=== PATIENT | female | born 1960 | race Caucasian/White ===

== ENCOUNTER 2017-07-05 18:50 | Emergency (ER) | payer BC ==
[2017-07-05] MEDS ORDERED: HYDROMORPHONE HCL 2 MG/ML VIAL IM ONE (19:33)
[2017-07-05] MEDS ORDERED: KETOROLAC 30 MG/ML VIAL IM ONE (19:33)
--- NOTE | 2017-07-05 19:40 | Emergency Department Record ---
History of Present Illness - General Stated Complaint: MATHEWS Time Seen by Provider: 07/05/17 19:02 Source: Patient Mode of Arrival: Ambulatory Limitations: No limitations - History of Present Illness Initial Comments: 56 yo female presents to ED with a CC of "migraine headache", similar to previous. 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 Patient denies fevers, chills, or neck stiffness symptoms. Patient denies the use of anticoagulation medications. MD Complaint: Headache Onset/Timin -: Days(s) Onset Description: Gradual Severity scale (1-10): 8 Quality: Aching Consistency: Constant Improves With: Nothing Worsens With: None Treatments Prior to Arrival: Prescription analgesic - Related Data Allergies Allergy/AdvReac Type Severity Reaction Status Date / Time minocycline HCl Allergy Intermediate RASH Verified 07/05/17 19:46 [From Minocin] Skin Cleanser Combination Allergy Intermediate RASH Verified 07/05/17 19:46 No.4 [From Minocin] Review of Systems Constitutional: Denies: Chills, Fever, Malaise, Night sweats Eyes: Denies: Eye discharge, Eye pain ENT: Denies: Congestion, Ear pain, Epistaxis Respiratory: Denies: Cough, Dyspnea Cardiovascular: Denies: Chest pain, Dyspnea on exertion Endocrine: Denies: Fatigue, Heat or cold intolerance Gastrointestinal: Denies: Abdominal pain, Nausea, Vomiting Genitourinary: Denies: Incontinence, Retention Musculoskeletal: Denies: Arthralgia, Back pain, Gout, Joint swelling Skin: Denies: Bruising, Change in color Neurological: Reports: Headache. Denies: Abnormal gait, Confusion, Seizure Psychiatric: Denies: Anxiety Hematological/Lymphatic: Denies: Anemia, Blood Clots Past Medical History - SOCIAL HISTORY Smoking Status: Former smoker Drug Use: None - RESPIRATORY Hx Respiratory Disorders: No - CARDIOVASCULAR Hx Cardio Disorders: No - NEURO Hx Neuro Disorders: Yes Hx Headaches: Yes (migraines since age 14) - GI Hx GI Disorders: Yes Hx Reflux: Yes - Hx Genitourinary Disorders: No - ENDOCRINE Hx Endocrine Disorders: No - MUSCULOSKELETAL Hx Musculoskeletal Disorders: Yes Hx Osteoporosis: Yes (osteopenia/vit d deficiency dx 07/2014) - PSYCH Hx Psych Problems: Yes Hx Depression: Yes (from menopause) - HEMATOLOGY/ONCOLOGY Hx Hematology/Oncology Disorders: No Hx Blood Transfusions: Yes (1979 during child ) Hx Blood Transfusion Reaction: No Family Medical History Hx Diabetes: Grandparents Hx Heart Disease: Father, Mother Hx Stroke: Grandparents Physical Exam - General General Appearance: Alert, Oriented x3, Cooperative, Mild distress Limitations: No limitations - Head Head exam: Atraumatic, Normocephalic, Normal inspection Head exam detail: negative: Abrasion, Contusion, Hoover's sign, General tenderness, Hematoma, Laceration - Eye Eye exam: Normal appearance. negative: Conjunctival injection, Periorbital swelling, Periorbital tenderness, Scleral icterus - ENT Ear exam: negative: Auricular hematoma, Auricular trauma Nasal Exam: negative: Active bleeding, Discharge, Dried blood, Foreign body Mouth exam: negative: Drooling, Laceration, Muffled voice, Tongue elevation - Neck Neck exam: Normal inspection. negative: Meningismus, Tenderness - Respiratory Respiratory exam: Normal lung sounds bilaterally. negative: Rales, Respiratory distress, Rhonchi, Stridor - Cardiovascular Cardiovascular Exam: Regular rate, Normal rhythm, Normal heart sounds - GI/Abdominal GI/Abdominal exam: Soft. negative: Rebound, Rigid, Tenderness - Rectal Rectal exam: Deferred - exam: Deferred - Extremities Extremities exam: Normal inspection. negative: Calf tenderness, Pedal edema, Tenderness - Back Back exam: Denies: CVA tenderness (R), CVA tenderness (L) - Neurological Neurological exam: Alert, Normal gait, Oriented X3 - Psychiatric Psychiatric exam: Normal affect, Normal mood - Skin Skin exam: Normal color. negative: Abrasion Type of lesion: negative: abrasion Course Vital Signs 07/05/17 19:32 Temperature 98.9 F Pulse Rate [ 77 Pulse Ox Probe] Respiratory 18 Rate Blood Pressure 133/82 [Left Arm] Pulse Ox 99 - Reevaluation(s) Reevaluation #1: 07/05/17 20:40 Patient reassessed, reports mild improviment in her headache symptoms and is requesting more Dilaudid. I verbalized that I did not feel safe administering more dilaudid as 2 mg IM is a sufficient dose for an individual weighing 130 lbs , and the risk of respiratory suppression is higher with subsequent doses of opiates. Patient appears to be resting comfortably on re-examination at this time as well. I offered the patient valium as an alternative, will administer 5 mg IM and reassess. Reevaluation #2: 07/05/17 21:18 Patient is sitting up, reports that she is resting more comfortably. Patient then asked for "a couple of percocet as I am out". Will discharge home with Pancho julian 2 with instructions to follow-up with her pain specialist Friday without fail. Disposition Disposition: Discharge Clinical Impression: Acute headache Qualifiers: Headache type: unspecified Intractability: not intractable Qualified Code(s): R51 - Headache Disposition: Home, Self-Care Condition: (2) Stable Instructions: Migraine Headache (ED) Additional Instructions: Return to ED if your symptoms worsen or if you have any concerns. Follow-up with Dr. Byers in 1-3 days as directed. Time of Disposition: 19:42 Quality - Quality Measures Quality Measures: N/A - Blood Pressure Screening Does Patient Have Any of the Following: No Blood Pressure Classification: Pre-Hypertensive BP Reading Systolic Measurement: 140 Diastolic Measurement: 87 Screening for High Blood Pressure: < First Hypertensive BP, F/U Documented > [ G8950] First Hypertensive Follow-up Interventions: Referral to alternative/primary care provider.
[2017-07-05] MEDS ORDERED: DIAZEPAM 5 MG/1 ML TUBX IM ONE (20:39)
[2017-07-05] MEDS ORDERED: HYDROCODONE/APAP 5/325MG TABLET PO ONE (21:17)
== END 2017-07-05 21:31 | disposition home or self-care (01) ==
LOC: ER 18:50
DX: R51 Headache (principal)
CPT/HCPCS: 99283 ×2; 96372; J1885; J1170; J3360

== ENCOUNTER 2017-08-27 15:52 | Emergency (ER) | payer BC ==
[2017-08-27] MEDS ORDERED: 0.9 % SODIUM CHLORIDE 1,000 ML BAG IV ONE (16:13)
[2017-08-27] MEDS ORDERED: METOCLOPRAMIDE HCL 10 MG/2 ML VIAL IVP ONE (16:13)
[2017-08-27] MEDS ORDERED: KETOROLAC 30 MG/ML VIAL IVP ONE (16:13)
[2017-08-27] MEDS ORDERED: DIPHENHYDRAMINE HCL IV 50 MG/ML VIAL IVP ONE (16:13)
--- NOTE | 2017-08-27 16:15 | Emergency Department Record ---
History of Present Illness - General Chief Complaint: Headache Migraine Stated Complaint: MIGRAINE Time Seen by Provider: 08/27/17 16:08 Source: Patient Mode of Arrival: Ambulatory Limitations: No limitations - History of Present Illness Initial Comments: The patient is here due to having a migraine headache for about 7 days. Now for the last day the pain has worsened. The pain onset was gradual with the pain described as a throbbing pain bi-temporal associated with mild nausea and photophobia. The patient has a long hx of similar pain and has had migraine MATHEWS' s exactly like this for decades and does see a Neurologist at [facility]. She denies any new symptoms and states she does not take any blood thinners. She did take some Percocet prior to the onset of the pain worsening today with little relief. MD Complaint: "Migraine" Onset/Timin -: Days(s) Onset Description: Gradual Location: Occipital, Temporal Severity scale (1-10): 9 Quality: Throbbing, Similar to previous headaches Consistency: Constant, Getting worse Improves With: Medication Worsens With: Light, Movement of head/neck, Noise, Other Associated Symptoms: Nausea, Photophobia, Sensitivity to sound, Vision loss Treatments Prior to Arrival: Prescription analgesic - Related Data Allergies Allergy/AdvReac Type Severity Reaction Status Date / Time minocycline HCl Allergy Intermediate RASH Verified 07/05/17 19:46 [From Minocin] Skin Cleanser Combination Allergy Intermediate RASH Verified 07/05/17 19:46 No.4 [From Minocin] Travel Screening - Travel/Exposure Within Last 30 Days Have you traveled within the last 30 days?: No - Travel Symptoms Symptom Screening: None Review of Systems Constitutional: Denies: Chills, Fever Eyes: Denies: Eye discharge ENT: Denies: Congestion Respiratory: Denies: Cough, Dyspnea Past Medical History - SOCIAL HISTORY Smoking Status: Former smoker - RESPIRATORY Hx Respiratory Disorders: No - CARDIOVASCULAR Hx Cardio Disorders: No - NEURO Hx Neuro Disorders: Yes Hx Headaches: Yes (migraines since age 14) - GI Hx GI Disorders: Yes Hx Reflux: Yes - Hx Genitourinary Disorders: No - ENDOCRINE Hx Endocrine Disorders: No - MUSCULOSKELETAL Hx Musculoskeletal Disorders: Yes Hx Osteoporosis: Yes (osteopenia/vit d deficiency dx 07/2014) - PSYCH Hx Psych Problems: Yes Hx Depression: Yes (from menopause) - HEMATOLOGY/ONCOLOGY Hx Hematology/Oncology Disorders: No Hx Blood Transfusions: Yes (1979 during child ) Hx Blood Transfusion Reaction: No Family Medical History Any Significant Family History?: Yes Hx Diabetes: Grandparents Hx Heart Disease: Father, Mother Hx Stroke: Grandparents Physical Exam - General General Appearance: Alert, Oriented x3, Cooperative, No acute distress - Head Head exam: Atraumatic, Normocephalic, Normal inspection - Eye Eye exam: Normal appearance, PERRL, EOMI - ENT Throat exam: Normal inspection. negative: Tonsillar erythema, Tonsillar exudate - Neck Neck exam: Normal inspection, Full ROM. negative: Meningismus (The neck is very supple.), Tenderness - Respiratory Respiratory exam: Normal lung sounds bilaterally. negative: Respiratory distress - Cardiovascular Cardiovascular Exam: Regular rate, Normal rhythm, Normal heart sounds - GI/Abdominal GI/Abdominal exam: Soft, Normal bowel sounds. negative: Tenderness - Extremities Extremities exam: Normal inspection, Full ROM, Normal capillary refill. negative: Tenderness - Neurological Neurological exam: Alert, Normal gait, Oriented X3, Other (Neg Drift and Rhomberg.). negative: Abnormal gait, Altered, Motor sensory deficit Course Vital Signs 08/27/17 16:02 Temperature 98.5 F Pulse Rate 88 Respiratory 16 Rate Blood Pressure 146/84 Pulse Ox 95 - Reevaluation(s) Reevaluation #1: The patient is doing better at this time. Her MATHEWS is significantly improved but not gone. 08/27/17 17:08 Reevaluation #2: The patient is doing better and is ready for home. She does have an appointment with her MATHEWS Specialist for tomorrow. 08/27/17 17:33 Disposition Disposition: Discharge Clinical Impression: Migraine Qualifiers: Migraine type: unspecified Status migrainosus presence: without status migrainosus Intractability: not intractable Qualified Code(s): G43.909 - Migraine, unspecified, not intractable, without status migrainosus Disposition: Home, Self-Care Condition: (2) Stable Instructions: Migraine Headache (ED) Additional Instructions: Please continue your regular medicines as needed. Please keep your appointment with your headache specialist for tomorrow. Return to the ER for any problems or new pain. Forms: Patient Portal Access Time of Disposition: 17:32 Quality - Quality Measures Quality Measures: N/A - Blood Pressure Screening View Details: Yes Does Patient Have Any of the Following: No Blood Pressure Classification: Pre-Hypertensive BP Reading Systolic Measurement: 146 Diastolic Measurement: 84 Screening for High Blood Pressure: < Pre-Hypertensive BP, F/U Documented > [ G8950] Pre-Hypertensive Follow-up Interventions: Referral to alternative/primary care provider.
[2017-08-27] MEDS ORDERED: METHYLPREDNISOLONE PF 125MG/VIAL IVP ONE (17:07)
== END 2017-08-27 17:43 | disposition home or self-care (01) ==
LOC: ER 15:52
DX: G43.909 Migraine, unspecified, not intractable, without status migrainosus (principal); R11.0 Nausea; H53.149 Visual discomfort, unspecified
CPT/HCPCS: 99284 ×2; 96374; 96375; J1885; J1200; J2765; J2930; J7030

== ENCOUNTER 2017-08-30 14:11 | Emergency (ER) | payer BC ==
--- NOTE | 2017-08-30 15:02 | Emergency Department Record ---
History of Present Illness - General Chief Complaint: Headache Migraine Stated Complaint: MATHEWS Time Seen by Provider: 08/30/17 14:59 Source: Patient, RN notes reviewed Mode of Arrival: Ambulatory - History of Present Illness Initial Comments: patient has a headache and was seen here 3 days ago and the headache didn't get better and she is going to the [facility] for pain control and getting OMT. MD Complaint: Headache, "Migraine" Onset/Timin -: Week(s) Onset Description: Gradual Location: Occipital, Temporal Severity scale (1-10): 8 Quality: Throbbing, Other Consistency: Constant Associated Symptoms: Photophobia, Sensitivity to sound, Other Treatments Prior to Arrival: Prescription analgesic Treatment Prior to Arrival Comment:: Percocet 1015 and zofran 1400. - Related Data Previous Rx's Medication Instructions Recorded Azithromycin [Zithromax] 250 mg PO DAILY #6 tablet 08/30/17 Allergies Allergy/AdvReac Type Severity Reaction Status Date / Time minocycline HCl Allergy Intermediate RASH Verified 07/05/17 19:46 [From Minocin] Skin Cleanser Combination Allergy Intermediate RASH Verified 07/05/17 19:46 No.4 [From Minocin] Travel Screening - Travel/Exposure Within Last 30 Days Have you traveled within the last 30 days?: No - Travel/Exposure Within Last Year Have you traveled outside the [place] in the last year?: No - Additonal Travel Details Have you been exposed to anyone with a communicable illness?: No - Travel Symptoms Symptom Screening: None Review of Systems Reviewed: No additional complaints except as noted below Constitutional: Reports: As per HPI. Denies: Chills, Fever, Malaise, Night sweats, Weakness, Weight change Eyes: Reports: As per HPI. Denies: Eye discharge, Eye pain, Photophobia, Vision change ENT: Reports: As per HPI, Congestion, Throat pain. Denies: Dental pain, Ear pain, Epistaxis, Hearing loss Respiratory: Reports: As per HPI. Denies: Cough, Dyspnea, Hemoptysis, Stridor, Wheezes Cardiovascular: Reports: As per HPI. Denies: Arrhythmia, Chest pain, Dyspnea on exertion, Edema, Murmurs, Orthopnea, Palpitations, Paroxysmal nocturnal dyspnea, Rheumatic Fever, Syncope Endocrine: Reports: As per HPI. Denies: Fatigue, Heat or cold intolerance, Polydipsia, Polyuria Gastrointestinal: Reports: As per HPI. Denies: Abdominal pain, Constipation, Diarrhea, Hematemesis, Hematochezia, Melena, Nausea, Vomiting Genitourinary: Reports: As per HPI. Denies: Abnormal menses, Discharge, Dyspareunia, Dysuria, Frequency, Hematuria, Incontinence, Retention, Urgency Musculoskeletal: Reports: As per HPI. Denies: Arthralgia, Back pain, Gout, Joint swelling, Myalgia, Neck pain Skin: Reports: As per HPI. Denies: Bruising, Change in color, Change in hair/ nails, Lesions, Pruritus, Rash Neurological: Reports: As per HPI. Denies: Abnormal gait, Confusion, Headache, Numbness, Paresthesias, Seizure, Tingling, Tremors, Vertigo, Weakness Psychiatric: Reports: As per HPI. Denies: Anxiety, Auditory hallucinations, Depression, Homicidal thoughts, Suicidal thoughts, Visual hallucinations Hematological/Lymphatic: Reports: As per HPI. Denies: Anemia, Blood Clots, Easy bleeding, Easy bruising, Swollen glands Past Medical History - SOCIAL HISTORY Smoking Status: Former smoker Alcohol Use: None Drug Use: None - RESPIRATORY Hx Respiratory Disorders: No - CARDIOVASCULAR Hx Cardio Disorders: No - NEURO Hx Neuro Disorders: Yes Hx Headaches: Yes (migraines since age 14) - GI Hx GI Disorders: Yes Hx Reflux: Yes - Hx Genitourinary Disorders: No - ENDOCRINE Hx Endocrine Disorders: No - MUSCULOSKELETAL Hx Musculoskeletal Disorders: Yes Hx Osteoporosis: Yes (osteopenia/vit d deficiency dx 07/2014) - PSYCH Hx Psych Problems: Yes Hx Depression: Yes (from menopause) - HEMATOLOGY/ONCOLOGY Hx Hematology/Oncology Disorders: No Hx Blood Transfusions: Yes (1978 during child ) Hx Blood Transfusion Reaction: No Family Medical History Any Significant Family History?: No Hx Diabetes: Grandparents Hx Heart Disease: Father, Mother Hx Stroke: Grandparents Physical Exam - General General Appearance: Alert, Oriented x3, Cooperative, No acute distress - Head Head exam: Normal inspection - Eye Eye exam: Normal appearance, PERRL Pupils: Normal accommodation - ENT ENT exam: Mucous membranes moist, Normal external ear exam, TM's normal bilaterally, Other (sinus congestion) Ear exam: Normal external inspection. negative: External canal tenderness Nasal Exam: Normal inspection. negative: Discharge, Sinus tenderness Mouth exam: Normal external inspection, Tongue normal Teeth exam: Normal inspection. negative: Dental caries Throat exam: Tonsillar erythema. negative: Tonsillar exudate - Neck Neck exam: Normal inspection, Full ROM. negative: Tenderness - Respiratory Respiratory exam: Normal lung sounds bilaterally. negative: Respiratory distress - Cardiovascular Cardiovascular Exam: Regular rate, Normal rhythm, Normal heart sounds - GI/Abdominal GI/Abdominal exam: Soft, Normal bowel sounds. negative: Tenderness - Rectal Rectal exam: Deferred - exam: Deferred - Extremities Extremities exam: Normal inspection, Full ROM, Normal capillary refill. negative: Tenderness - Back Back exam: Reports: Normal inspection, Full ROM. Denies: Muscle spasm, Rash noted, Tenderness - Neurological Neurological exam: Alert, Normal gait, Oriented X3, Reflexes normal - Psychiatric Psychiatric exam: Normal affect, Normal mood - Skin Skin exam: Dry, Intact, Normal color, Warm Course Vital Signs 08/30/17 14:26 Temperature 97.8 F Pulse Rate 96 H Respiratory 16 Rate Blood Pressure 149/91 Pulse Ox 100 Disposition Clinical Impression: Migraine Qualifiers: Migraine type: without aura Status migrainosus presence: without status migrainosus Intractability: not intractable Qualified Code(s): G43.009 - Migraine without aura, not intractable, without status migrainosus Sinusitis Qualifiers: Sinusitis location: unspecified location Chronicity: acute Recurrence: non- recurrent Qualified Code(s): J01.90 - Acute sinusitis, unspecified Disposition: Home, Self-Care Condition: (1) Good Instructions: Migraine Headache (ED), Sinusitis (ED) Additional Instructions: follow up with Dr. Byers in 3 days Prescriptions: Azithromycin [Zithromax] 250 mg PO DAILY #6 tablet Forms: Patient Portal Access Time of Disposition: 16:46 Quality - Quality Measures Quality Measures: N/A - Blood Pressure Screening Does Patient Have Any of the Following: No Blood Pressure Classification: Hypertensive Reading Systolic Measurement: 149 Diastolic Measurement: 91 Screening for High Blood Pressure: < First Hypertensive BP, F/U Documented > [ G8950] First Hypertensive Follow-up Interventions: Referral to alternative/primary care provider.
[2017-08-30] MEDS: PROMETHAZINE HCL 25 MG/ML VIAL IM ONE (15:23)
[2017-08-30] MEDS: HYDROMORPHONE HCL 2 MG/ML VIAL IM ONE (15:23)
[2017-08-30] MEDS: HYDROMORPHONE HCL 1MG/ML **SYRINGE IM ONE (16:23)
[2017-08-30] MEDS: KETOROLAC 60 MG/2 ML VIAL IM STA (16:23)
== END 2017-08-30 16:55 | disposition home or self-care (01) ==
LOC: ER 14:11
DX: G43.009 Migraine without aura, not intractable, without status migrainosus (principal); J01.90 Acute sinusitis, unspecified; H53.149 Visual discomfort, unspecified; M54.2 Cervicalgia
CPT/HCPCS: 99283 ×2; 96372; J1170 ×2; J1885; J2550